=== PATIENT | female | born 2000 ===

== ENCOUNTER 2022-05-18 04:28 | Inpatient (IN) ==
[2022-05-18] MEDS ORDERED: CARBOPROST TROMETHAMINE 250 MCG/ML AMP IM PRN (04:44)
[2022-05-18] MEDS ORDERED: BUTORPHANOL 2 MG/ML VIAL IV PRN (04:44)
[2022-05-18] MEDS ORDERED: MEPERIDINE 50 MG/1 ML VIAL IV PRN (04:44)
[2022-05-18] MEDS ORDERED: LACTATED RINGERS 1,000 ML IV ONE ×2 (04:44→18:07)
[2022-05-18] MEDS ORDERED: TRANEXAMIC ACID 1,000 MG in SODIUM CHLORIDE 0.9% 100 ML IV PRN (04:44)
[2022-05-18] MEDS ORDERED: METHYLERGONOVINE 0.2 MG/1 ML AMP IM PRN (04:44)
[2022-05-18] MEDS ORDERED: OXYTOCIN/LR 20 UNIT/1,000 ML BAG IV ONE ×2 (04:44→17:21)
[2022-05-18] MEDS ORDERED: miSOPROStoL 200 MCG TABLET RECTAL PRN (04:44)
[2022-05-18] MEDS ORDERED: ONDANSETRON 4 MG/2 ML VIAL IV PRN (04:44)
[2022-05-18 05:10] LABS: Basophils % 0.4 % (0.0-0.8); Eosinophils # 0.1 10*3/uL (0.0-0.87); Eosinophils % 1.2 % (0.00-10.9); Hematocrit 35.5 VOL% (35.7-47.0); Hemoglobin 11.2 GM/DL (12.0-16.0); Immature Granulocytes % 0.4 %; Immature Granulocytes Absolute 0.03 #; Lymphocytes # 1.6 10*3/uL (1.4-4.0); Lymphocytes % 19.2 % (21.3-54.2); Mean Corpuscular HGB Conc 31.5 GM/DL (32-36); Mean Platelet Volume 9.4 FL (9.6-12.0); Monocytes # 0.5 10*3/uL (0.11-0.8); Monocytes % 5.8 % (1.7-12.7); Platelet Count 361 T/CUMM (130-400); Red Blood Count 4.33 MC/CUMM (3.8-5.5); Red Cell Distribution Width 14.3 % (9.3-17.3); White Blood Count 8.6 T/CUMM (4-12)
[2022-05-18 05:31] LABS: Alanine Aminotransferase 36 U/L (13-56); Albumin 2.2 G/DL (3.4-5.0); Alkaline Phosphatase 211 U/L (45-117); Aspartate Amino Transferase 17 U/L (0-37); Bilirubin,Total < 0.39 MG/DL (0.20-1.00); Blood Urea Nitrogen 9 MG/DL (7-18); Calcium 8.3 MG/DL (8.5-10.1); Carbon Dioxide 19 MMOL/L (21-32); Chloride 110 MMOL/L (98-107); Glucose 89 MG/DL (74-106); Osmolality,Calculated 278.3 MOS/KG (273-304); Potassium 3.8 MMOL/L (3.5-5.1); Sodium 141 MMOL/L (136-145); Total Protein 6.2 G/DL (6.4-8.2)
[2022-05-18] MEDS: LACTATED RINGERS 1,000 ML IV SCH ×2 (05:43→14:44)
[2022-05-18] MEDS ORDERED: AMPICILLIN INJ 2,000 MG in SODIUM CHLORIDE 0.9% 100 ML IV ONE (05:50)
[2022-05-18] MEDS ORDERED: OXYTOCIN/LR 20 UNIT/1,000 ML BAG IV SCH (06:00)
[2022-05-18] MEDS: AMPICILLIN INJ 1,000 MG in SODIUM CHLORIDE 0.9% 100 ML IV SCH ×4 (10:03→21:51)
[2022-05-18] MEDS ORDERED: SODIUM CHLORIDE 0.9% 0 ML IV ONE (17:21)
[2022-05-18] MEDS ORDERED: TRANEXAMIC ACID 1,000 MG/10 ML VIAL ONE (17:21)
[2022-05-18] MEDS ORDERED: METHYLERGONOVINE 0.2 MG/1 ML AMP ONE (17:21)
[2022-05-18] MEDS ORDERED: miSOPROStoL 200 MCG TABLET ONE (17:21)
[2022-05-18] MEDS ORDERED: CARBOPROST TROMETHAMINE 250 MCG/ML AMP IM ONE (17:22)
[2022-05-18] MEDS ORDERED: ePHEDrine 50 MG/ML VIAL IV PRN (18:07)
[2022-05-18] MEDS ORDERED: hydrOXYzine HCL 25 MG/1 ML VIAL IM PRN (18:07)
[2022-05-18] MEDS ORDERED: diphenhydrAMINE 50 MG/1 ML VIAL IV PRN (18:07)
[2022-05-18] MEDS ORDERED: FAMOTIDINE 20 MG/2 ML VIAL IV ONE (18:07)
[2022-05-18] MEDS ORDERED: NALOXONE 0.4 MG/ML VIAL IV PRN (18:07)
[2022-05-18] MEDS ORDERED: CITRIC ACID/SODIUM CITRATE 30 ML UDCUP PO ONE (18:07)
[2022-05-18] MEDS ORDERED: fentaNYL 2 MCG/ROPIV 0.2% EPID 100 ML EPIDURAL SCH (18:30)
[2022-05-18 19:41] LABS: Mucus,Urine Occasional /LPF (Occasional); RBC,Urine 2 /HPF (0-4); Squamous Epithelial Cell,Urine Occasional /HPF (0-10)
[2022-05-18 19:42] LABS: Bilirubin,Urine Negative (Negative); Blood, Urine Negative (Negative); Glucose,Urine (UA) Negative (Negative); Ketones,Urine >160 mg/dL (Negative); Nitrite,Urine Negative (Negative); Protein,Urine Negative (Negative); Urine Appearance Clear (Clear); Urine Color Yellow (Yellow)
[2022-05-18 23:29] LABS: Cord Venous Blood HCO3 20.1 MMOL/L; Cord Venous Blood PCO2 39.8 MMHG; Cord Venous Blood PO2 30.3
[2022-05-19] MEDS ORDERED: MEASLES/MUMPS/RUBELLA VACCINE 0.5 ML VIAL SUBCUT ONE (00:06)
[2022-05-19] MEDS ORDERED: WITCH HAZEL PADS 100/JAR TOP PRN (00:06)
[2022-05-19] MEDS ORDERED: BISACODYL 10 MG SUPP RECTAL PRN (00:06)
[2022-05-19] MEDS ORDERED: BENZOCAINE 20%/MENTHOL 0.5% SPRAY 56 GM CAN TOP PRN (00:06)
[2022-05-19] MEDS ORDERED: HYDROCORTISONE 2.5% RECTAL CREAM 30 GM TUBE TOP PRN (00:06)
[2022-05-19] MEDS ORDERED: DIPH/TET/ACEL PERT BOOSTER VACCINE 0.5 ML VIAL IM ONE (00:06)
[2022-05-19] MEDS ORDERED: ACETAMINOPHEN 325 MG TABLET PO PRN (00:06)
[2022-05-19] MEDS ORDERED: oxyCODONE/ACETAMINOPHEN 5-325 MG TABLET PO PRN ×2 (00:06)
[2022-05-19] MEDS ORDERED: IBUPROFEN 800 MG TABLET PO PRN (00:06)
[2022-05-19] MEDS ORDERED: LANOLIN 50% CREAM 0.3 OZ TUBE TOP PRN (00:06)
[2022-05-19] MEDS ORDERED: OXYTOCIN/LR 20 UNIT/1,000 ML BAG IV ONE (00:06)
[2022-05-19] MEDS ORDERED: RHO(D) IMMUNE GLOBULIN 300 MCG SYRINGE IM ONE (00:06)
[2022-05-19 05:35] LABS: Basophils % 0.2 % (0.0-0.8); Hematocrit 32.2 VOL% (35.7-47.0); Hemoglobin 10.4 GM/DL (12.0-16.0); Immature Granulocytes % 0.4 %; Immature Granulocytes Absolute 0.05 #; Lymphocytes # 1.4 10*3/uL (1.4-4.0); Lymphocytes % 11.8 % (21.3-54.2); Mean Corpuscular HGB Conc 32.3 GM/DL (32-36); Mean Corpuscular Volume 82.6 FL (87-102); Mean Platelet Volume 9.6 FL (9.6-12.0); Monocytes # 0.7 10*3/uL (0.11-0.8); Monocytes % 5.6 % (1.7-12.7); Platelet Count 309 T/CUMM (130-400); Red Cell Distribution Width 14.5 % (9.3-17.3); White Blood Count 11.7 T/CUMM (4-12)
[2022-05-19] MEDS: DOCUSATE SODIUM 100 MG CAPSULE PO SCH (08:12)
[2022-05-20 07:22] VITALS: BP 103/52
[2022-05-20] MEDS: DOCUSATE SODIUM 100 MG CAPSULE PO SCH (08:40)
== END 2022-05-20 12:50 | disposition home or self-care (01) | DRG 807 ==
LOC: N.LD 04:28 → N.OB 05-19 02:29
PROVIDERS: ADMIT Obstetrics & Gynecology; ATTEND Obstetrics & Gynecology